=== PATIENT | female | born 1970 | race African-American/Black ===

== ENCOUNTER 2016-04-20 05:25 | Emergency (ER) | payer OTHER ==
[2016-04-20 05:31] VITALS: BP 149/83; PULSE 102; RESP 18; TEMP 97.9; O2SAT 96
[2016-04-20] MEDS ORDERED: diphenhydrAMINE HCL 50 MG/ML VIAL IV PUSH ONE (05:45)
[2016-04-20] MEDS ORDERED: FAMOTIDINE 20 MG/2 ML VIAL IV PUSH ONE (05:45)
[2016-04-20] MEDS ORDERED: methylPREDNISolone SOD SUCC 125 MG/2 ML VIAL IV PUSH ONE (05:45)
[2016-04-20] MEDS ORDERED: SODIUM CHLOR 0.9% 1000 ML INJ 1,000 ML IV ONE (05:45)
[2016-04-20] MEDS ORDERED: PRED20 PO (06:42)
--- NOTE | 2016-04-20 06:43 | PD ---
HPI Chief Complaint: Allergic/Adverse Reaction Time Seen by Provider: 05:40 Travel History International Travel<30 days: No Contact w/Intl Traveler<30days: No Traveled to known affect area: No History of Present Illness HPI This is a 45-year-old female who has a history of recurrent allergic reactions who presents to the emergency department having woken up in the middle the night feeling like her throat was closing and she was having some trouble breathing, constant, moderate severity. She says it feels similar to allergic reaction sees had in the past. She says she often gets allergic reactions to soy. She denies any abdominal pain, vomiting or nausea and denies any rash or itching. She's not on any blood pressure medications. PFSH Past Medical History Medical History: Denies Significant Hx Diabetes: Yes Patient Takes Glucophage: No Tetanus Vaccination: Unknown Influenza Vaccination: No ?: Not LMP: 04/06/16 : 3 Para: 3 Past Surgical History Surgical History: No Previous Surgery Social History Alcohol Use: No Tobacco Use: No Substance Use: No Allergies-Medications (Allergen,Severity, Reaction): Coded Allergies: Beef (Verified Allergy, Intermediate, 04/20/16) Pork (Verified Allergy, Intermediate, 04/20/16) Soybean (Verified Allergy, Intermediate, 04/20/16) Reported Meds & Prescriptions Reported Meds & Active Scripts Active No Active Prescriptions or Reported Medications Review of Systems Except as stated in HPI: all other systems reviewed are Neg Physical Exam Narrative GENERAL:Well appearing, no acute distress SKIN: Warm and dry. HEAD: Atraumatic. Normocephalic. EYES: Pupils equal and round. No injection or drainage. ENT: Moist mucous membranes. Edema of the uvula. Some muffled voice. NECK: Trachea midline. CARDIOVASCULAR: Regular rate and rhythm. No murmur appreciated. RESPIRATORY: Clear to auscultation. Breath sounds equal bilaterally. GASTROINTESTINAL: Abdomen soft, non-tender, nondistended. MUSCULOSKELETAL: No obvious deformities. NEUROLOGICAL: Awake and alert. No obvious cranial nerve deficits. Moving all extremities. PSYCHIATRIC: Appropriate mood and affect; insight and judgment normal. Data Data Last Documented VS Vital Signs Date Time Temp Pulse Resp B/P Pulse Ox O2 Delivery O2 Flow Rate FiO2 04/20/16 05:36 97 18 100 Room Air 04/20/16 05:31 97.9 149/83 Orders Methylprednisolone So Succ Inj (Solumedr (04/20/16 05:45) Diphenhydramine Inj (Benadryl Inj) (04/20/16 05:45) Sodium Chlor 0.9% 1000 Ml Inj (Ns 1000 M (04/20/16 05:45) Famotidine Inj (Pepcid Inj) (04/20/16 05:45) MDM Medical Decision Making Medical Screen Exam Complete: Yes Emergency Medical Condition: Yes Interpretation(s) Afebrile, mild tachycardia, hypertensive Differential Diagnosis Uvulitis, angioedema, allergic reaction, anaphylaxis Narrative Course This is a 45-year-old female who presents to the emergency department with a swollen uvula that started abruptly overnight. She took some Benadryl at home and since then her symptoms have been improving. An IV was established and she was given Solu-Medrol and an additional dose of Benadryl as well as famotidine. Her symptoms improved. I think she is safe for discharge home. Diagnosis Primary Impression: Uvulitis Patient Instructions: General Instructions Additional Instructions: If you develop swelling of the throat or coughing a lot, wheezing or trouble breathing, throwing up or having diarrhea, feeling dizzy or passing out, or spreading of your rash return to the emergency room immediately as you may be having a life threatening allergic reaction. Complete your course of steroids and take benadryl every 4 hours for the next 48 hours and then as needed for itching or other symptoms. Med/Other Pt SpecificInfo: Prescription(s) given Scripts Prednisone 20 Mg Tab40 Mg PO DAILY 4 Days Prov:Anila Knowles MD 04/20/16 Disposition: 01 DISCHARGE HOME Condition: Stable Anila Knowles MD Apr 20, 2016 06:42
[2016-04-20 07:20] VITALS: BP 120/77; TEMP 97.8
== END 2016-04-20 07:20 | disposition home or self-care (01) ==
LOC: NEPE 05:25
DX: K12.2 Cellulitis and abscess of mouth (principal); E11.9 Type 2 diabetes mellitus without complications; R00.0 Tachycardia, unspecified; I10 Essential (primary) hypertension
CPT/HCPCS: 96361; 96374; 96375; 99284; J1200; J2930; J7030